=== PATIENT | female | born 1935 | race Caucasian/White ===

== ENCOUNTER 2018-12-26 12:34 | Emergency (ER) | payer OTHER, MEDICAID ==
[~2018-12-26] VITALS: Ht 167.6 cm; Wt 105.2 kg
[2018-12-26 12:38] VITALS: BP 159/90
--- NOTE | 2018-12-26 12:51 | NUR ---
PT AMBULATED WITH WALKER TO ER BED 09
--- NOTE | 2018-12-26 12:55 | NUR ---
BIB FAMILY WITH C/O DIZZINESS SINCE THIS MORNING. PT STATES SHE WOKE UP THIS MORNING FEELING DIZZY AND HEAD IS SPINNING. -V/D, + BLURRY VISION. - FACIAL DROOP. PT SEEN LAUGHING AND SMILING. PT DENIES N/V/D; AAOX4, PERRL, WITH EVEN AND STEADY GAIT; LUNGS CLEAR BL, BREATHING UNLABORED; HR EVEN AND REGULAR, BL PERIPHERAL PULSES PRESENT; PT STATES 0/10 PAIN AT THIS TIME; VSS; PATIENT POSITIONED FOR COMFORT; HOB ELEVATED; BEDRAILS UP X2; BED DOWN.
--- NOTE | 2018-12-26 13:29 | NUR ---
PT ATTEMPTING TO GIVE URINE AT THIS TIME.
[2018-12-26 14:04] LABS: BASOPHILS # (AUTO) 0.1 K/uL (0.00-0.22); BASOPHILS % (AUTO) 0.8 % (0.0-2.0); EOSINOPHILS # (AUTO) 0.2 K/uL (0-0.4); EOSINOPHILS % (AUTO) 1.6 % (0.0-4.0); HEMATOCRIT 45.7 % (36-48); HEMOGLOBIN 14.9 g/dL (12.0-16.0); LYMPHOCYTES % (AUTO) 41.2 % (20.5-51.1); MEAN CORPUSCULAR HEMOGLOBIN 30 pg (27-31); MEAN CORPUSCULAR HGB CONC 33 g/dL (33-37); MEAN CORPUSCULAR VOLUME 90.5 fL (80-94); MONOCYTES # (AUTO) 0.9 K/uL (0.8-1.0); MONOCYTES % (AUTO) 9.6 % (1.7-9.3); NEUTROPHILS # (AUTO) 4.6 K/uL (1.8-7.7); NEUTROPHILS % (AUTO) 46.8 % (42.2-75.2); PLATELET COUNT (AUTO) 284 K/uL (140-450); RED BLOOD CELL COUNT(AUTO) 5.05 MIL/uL (4.20-5.40); RED CELL DISTRIBUTION WIDTH 15.2 % (11.6-13.7); WHITE BLOOD COUNT (AUTO) 9.8 K/uL (4.8-10.8)
[2018-12-26 14:16] LABS: APPEARANCE,URINE CLEAR (CLEAR); BILIRUBIN,URINE NEGATIVE (NEGATIVE); BLOOD, URINE NEGATIVE (NEGATIVE); COLOR,URINE YELLOW (YELLOW); LEUKOCYTE ESTERASE ,URINE NEGATIVE (NEGATIVE); NITRITE, URINE NEGATIVE (NEGATIVE); PH,URINE 6.5 (5.0-9.0); UGLUCOSE NEGATIVE (NEGATIVE)
[2018-12-26 14:33] LABS: ALBUMIN 3.3 g/dL (3.4-5.0); ANION GAP 6.1 (8-16); ASPARTATE AMINOTRANSFERASE 10 U/L (15-37); CARBON DIOXIDE 32.1 mmol/L (21-32); CHLORIDE 108 mmol/L (98-107); CREATININE 0.9 mg/dL (0.6-1.3); GLUCOSE 101 mg/dL (74-106); POTASSIUM 4.2 mmol/L (3.5-5.1); SODIUM SERUM 142 mmol/L (136-145); TOTAL BILIRUBIN 0.7 mg/dL (0.0-1.0); UREA NITROGEN, BLOOD 22 mg/dL (7-18)
[2018-12-26] MEDS ORDERED: NACL 0.9% 500 ML IV ONE (14:50)
[2018-12-26 16:41] VITALS: BP 137/83
== END 2018-12-26 16:42 | disposition home or self-care (01) ==
LOC: MED 12:34
DX: E86.0 Dehydration (principal); R42 Dizziness and giddiness; H53.8 Other visual disturbances; I10 Essential (primary) hypertension; Z88.0 Allergy status to penicillin; Z88.8 Allergy status to other drugs, medicaments and biological substances
CPT/HCPCS: 36415; 70450; 71045; 80053; 81003; 84484; 85025; 93005; 96360; 99284; J7030; Q0092

== ENCOUNTER 2019-08-26 08:17 | Emergency (ER) | payer OTHER ==
[~2019-08-26] VITALS: Ht 157.5 cm; Wt 95.0 kg
[2019-08-26 08:32] VITALS: BP 149/75
--- NOTE | 2019-08-26 08:32 | NUR ---
BIB DAUGHTER W/ C/O PRODUCTIVE COUGH AND INTERMITTENT FEVER SINCE MONDAY. ORAL TEMP 97.8. LUNG SOUNDS CLEAR ALL THROUGHOUT. MOIST PRODUCTIVE COUGH. NO RESP DISTRESS. VSS. A & O X 4. STEADY GAIT WITH AMBULATORY DEVICE. NKA. DENIES:PMH
--- NOTE | 2019-08-26 08:50 | NUR ---
RADIOLOGY AT BEDSIDE TO TAKE PT TO GET XR BY WHEELCHAIR.
--- NOTE | 2019-08-26 08:50 | NUR ---
Katherine joaqiun in ED - 08/26/19 at 0859 by [facility] RADIOLOGY AT BEDSIDE.
--- NOTE | 2019-08-26 09:00 | NUR ---
PT RETURNED BACK FROM RADIOLOGY.
--- NOTE | 2019-08-26 09:07 | NUR ---
INFLUENZA SWAB COLLECTED AND SENT TO LAB.
--- NOTE | 2019-08-26 10:02 | NUR ---
Patient discharged with v/s stable. Written and verbal after care instructions given and explained. Patient alert, oriented and verbalized understanding of instructions. Ambulatory with steady gait. All questions addressed prior to discharge. ID band removed. Patient advised to follow up with PMD. Rx of BERT STUART given. Patient educated on indication of medication including possible reaction and side effects. Opportunity to ask questions provided and answered.
[2019-08-26 10:03] VITALS: BP 142/89
== END 2019-08-26 10:00 | disposition home or self-care (01) ==
LOC: MED 08:17
DX: J06.9 Acute upper respiratory infection, unspecified (principal); I10 Essential (primary) hypertension; Z88.0 Allergy status to penicillin; Z88.8 Allergy status to other drugs, medicaments and biological substances
CPT/HCPCS: 71046; 87804; 99284